=== PATIENT | female | born 1950 | race Caucasian/White ===

== ENCOUNTER 2023-04-16 14:03 | Observation (INO) | payer MEDICARE, OTHER, SELFPAY ==
[2023-04-16] VITALS (12 sets, daily range): BP systolic 112–159; BP diastolic 65–104; PULSE 87–127; RESP 14–18; TEMP 36.6–38.3; O2SAT 94–99; BMI 27.1; BMI 26.9
--- NOTE | 2023-04-16 14:39 | EKG12_ITS ---
Test Reason : Blood Pressure : / mmHG Vent. Rate : 113 BPM Atrial Rate : 000 BPM P-R Int : 000 ms QRS Dur : 084 ms QT Int : 322 ms P-R-T Axes : 000 018 080 degrees QTc Int : 441 ms Atrial fibrillation with rapid ventricular response Nonspecific T wave abnormality Abnormal ECG Confirmed by WENDY ALFARO, JENNY ([id number]), photo editor ROXI SALAZAR ([id number]) on 04/18/2023 6:49:55 AM Referred By: Confirmed By:JENNY NGUYEN MD
--- NOTE | 2023-04-16 14:49 | RAD_ITS ---
INDICATION: chest pain EXAMINATION/TECHNIQUE: X-RAY - XR Chest 1 View COMPARISON: No relevant prior comparison study available FINDINGS: LINES/DEVICES: None. LUNGS: No consolidation, edema or effusion. No pneumothorax. MEDIASTINUM AND CARDIOVASCULAR STRUCTURES: Borderline cardiac silhouette. BONES AND SOFT TISSUES: No demonstrated acute osseous changes. RAD/Chest 1 View (Portable) IMPRESSION: No radiographic evidence of acute cardiopulmonary disease. Electronically Signed: Vinicio Carrillo MD at 15:16 EDT ,
[2023-04-16] MEDS: Nitroglycerin SL (ED/IMG/CATH) 0.4 MG TABLET SL ×3 (14:50→15:39)
[2023-04-16] MEDS: Aspirin 81 MG TAB.CHEW 324 MG PO (14:50)
[2023-04-16 15:02] LABS: Absolute Lymphocyte Count 0.99 X10^3/uL (0.83-4.51); Absolute Neutrophil Count 8.3 X10^3/uL (2.0-7.7); Basophil# 0.03 X10^3/uL; Basophil% 0.3 % (0-1); Eosinophil# 0.02 X10^3/uL; Eosinophils% 0.2 % (0-5); Hematocrit 43.3 % (37-47); Hemoglobin 13.9 g/dL (12.0-15.0); Lymphocyte # 0.99 X10^3/ul (0.83-4.51); Lymphocyte % 9.4 % (19-41); Mean Corp Hgb Conc 32.1 g/dL (32-36); Mean Corpuscular Hgb 28.8 pg (27.0-32.0); Mean Corpuscular Volume 89.6 fL (81-99); Mean Platelet Vol. 9.4 fl (6.2-12.0); Monocyte# 1.14 X10^3/uL; Monocyte% 10.8 % (0-10); NRBC Flagged by Analyzer 0 % (0-5); Neutrophil % 78.7 % (47-70); Platelet Count 264 K/mm3 (150-450); RBC Distribution Width CV 13.8 % (11.6-14.6); RBC Distribution Width SD 45.6 fl (35.1-43.9); Red Blood Count 4.83 M/mm3 (4.2-5.4); White Blood Count 10.5 K/mm3 (4.4-11.0)
[2023-04-16 15:21] LABS: Anion Gap 4 (5-15); BUN 11 mg/dL (7-18); BUN/Creat Ratio 14.5 RATIO (10-20); Chloride 107 mmol/L (98-107); Creatinine, Serum 0.76 mg/dL (0.55-1.02); EST Glomerular Filtration Rate 79 mL/min (>60); Est Glom Filt Rate - Afr Amer 96 mL/min (>60); Glucose 136 mg/dL (74-106); Potassium 3.8 mmol/L (3.5-5.1); Sodium Level 138 mmol/L (136-145); Troponin-I HS 7 pg/mL (3.0-54.0)
--- NOTE | 2023-04-16 15:22 | ED.VIS.CHEST ---
HPI History of Present Illness Chief Complaint: Chest Pain Informant: patient Onset/Context/Timing Onset: Today Activity at onset: sudden Timing: Continuous Quality: Positive for Pressure Location: Substernal Worsened By: Exertion, Movement of Torso and Breathing Relieved By: Nothing Associated Symptoms: Positive for Cough and Lightheadedness; Negative for Nausea, Vomiting, Diaphoresis, Dyspnea, Fever, Acid Reflux or Palpitations Narrative Narrative: Patient presents with chest pain that began today. Patient states it is over the lower substernal area. Patient states her pain is constant. Patient describes it as a pressure. Patient states it is worse with bending forward, movement of her upper chest, deep breathing, and going up steps. Patient states nothing seems to help with it. Patient admits to a recent cough but denies any sputum production. Patient admits to some lightheadedness. Patient denies any nausea or vomiting. Patient denies any diaphoresis. Patient denies any shortness of breath. CVD Risk Factors: Negative for Hypertension, Diabetes, Hypercholesterolemia, Family History 1' </=55 or Smoking PE Risk Factors: Negative for Recent Travel/Surgery, Recent Immobilization, Prior DVT or PE, Cancer or OCP + Smoking + >/=35 PFSH PFSH Medical History (Updated 04/16/23 @ 16:[address] Gil Bowman DO) Anxiety Hypothyroid Home Medications alprazolam 0.25 mg tablet 0.25 mg PO DAILY PRN anxiety 04/16/23 [History Last Taken Unknown] thyroid (pork) 30 mg tablet ([place] Thyroid) 60 mg PO MOWEFR HYPOTHYROIDISM 04/16/23 [History Last Taken Unknown] thyroid (pork) 30 mg tablet ([place] Thyroid) 90 mg PO .COMPLEX HYPOTHROIDISM 04/16/23 [History Last Taken Unknown] Allergy/AdvReac Type Severity Reaction Status Date / Time erythromycin base AdvReac Mild PT UNSURE Verified 04/16/23 14:07 OF REACTION Surgical History (Updated 04/16/23 @ 15:[address] Gil Bowman DO) Hx of cataract surgery Hx of cholecystectomy Hx of eye surgery Hx of hysterectomy Hx of oophorectomy Hx of reduction mammoplasty Social History Smoking Status: Never smoker ROS ROS ED Constitutional Constitutional ED: Denies chills or fever(s) Eyes Eyes: Denies blurry vision or change in vision ENT ENT ED: Reports rhinorrhea; Denies sore throat Cardiovascular Cardiovascular: Reports chest pain; Denies palpitations Respiratory/Chest Respiratory/Chest: Reports cough; Denies dyspnea Gastrointestinal Gastrointestinal: Denies nausea or vomiting Genitourinary Genitourinary ED: Denies dysuria or hematuria Musculoskeletal Musculoskeletal: Denies back pain or neck pain Integumentary Denies abscess or rash Neurologic Neurologic: Denies headache(s) or weakness Allergic/Immunologic Allergic/Immunologic ED: Denies mouth swelling or urticaria EXAM Physical Exam Const Vital Signs: 04/16/23 14:04 04/16/23 14:24 04/16/23 14:42 Temperature 98 F Temperature Source Temporal Pulse Rate 127 H Respiratory Rate 16 Respiratory Effort Normal Non-Labored Blood Pressure 159/104 H Blood Pressure Mean 122 Pulse Ox 98 Oxygen Delivery Method Room Air Room Air 04/16/23 14:50 04/16/23 15:14 04/16/23 15:36 Temperature Temperature Source Pulse Rate 103 H 103 H 112 H Respiratory Rate 16 Respiratory Effort Blood Pressure 144/74 H 147/72 H 128/81 H Blood Pressure Mean 96 Pulse Ox 96 Oxygen Delivery Method Room Air 04/16/23 15:39 Temperature Temperature Source Pulse Rate 108 H Respiratory Rate Respiratory Effort Blood Pressure 138/82 H Blood Pressure Mean Pulse Ox Oxygen Delivery Method Positive well nourished and well developed General Appearance ED: well developed and NAD HEENT Reports moist mucous membranes Neck supple and no JVD Resp normal respiratory effort and clear to auscultation bilaterally Cardio Rate: tachycardic Rhythm: abnormal rhythm irregularly irregular GI soft to palpation, non-tender and non-distended Extremity General Extremety ED: Negative for edema or tenderness General Extremity: Negative for edema Neuro oriented x3, CN's II-XII intact bilaterally and no sensory deficits noted Sensorium / Orientation: awake and alert Motor Exam: strength 5/5 throughout Psych mental status grossly normal Heart Score History: Moderately Suspicious ECG: Nonspecific Repolarization Age: >/= 65 years Risk Factors: No Risk Factors Troponin: </= Normal Limit Score: 4 MDM MDM MDM Narrative Medical decision making narrative: Differential diagnosis includes cardiac dysrhythmia, cardiac ischemia, pneumonia, pneumothorax, pulmonary embolism, GERD, gastritis, and anxiety. EKG will be obtained to assess for cardiac dysrhythmia and cardiac ischemia. Chest x-ray will be obtained to assess for pneumonia and pneumothorax. CBC will be obtained to assess for leukocytosis and anemia. Basic metabolic profile will be obtained to assess for renal function, and electrolyte abnormalities. High-sensitivity troponin will be obtained to to assess for cardiac ischemia. D-dimer will be obtained to assess for pulmonary embolism. Lab Data Attestation: I reviewed the patient's lab results. Lab results narrative: CBC was reviewed and was within normal limits. Basic metabolic profile was reviewed and was within normal limits. High-sensitivity troponin was reviewed and was normal at 7. Labs: Laboratory Results - last 24 hr 04/16/23 04/16/23 14:15 15:40 WBC 10.5 RBC 4.83 Hgb 13.9 Hct 43.3 MCV 89.6 MCH 28.8 MCHC 32.1 RDW Std Deviation 45.6 H RDW Coeff of Lily 13.8 Plt Count 264 MPV 9.4 Immature Gran % (Auto) 0.600 Neut % (Auto) 78.7 H Lymph % (Auto) 9.4 L [place] % (Auto) 10.8 H Eos % (Auto) 0.2 Baso % (Auto) 0.3 Absolute Neuts (auto) 8.3 H Absolute Lymphs (auto) 0.99 Nucleated RBC % 0 D-Dimer Quant (PE/DVT) 0.68 H* Sodium 138 Potassium 3.8 Chloride 107 Carbon Dioxide 27.0 Anion Gap 4 L BUN 11 Creatinine 0.76 Estim Creat Clear Calc 48.00 Est GFR (MDRD) Af Amer 96 Est GFR (MDRD) Non-Af 79 BUN/Creatinine Ratio 14.5 Glucose 136 H Calcium 9.0 Troponin I High Sens 7 Radiography Diagnostic Testing: Clinical Impression(s) from Imaging Studies Chest X-Ray 04/16/23 14:49 IMPRESSION: No radiographic evidence of acute cardiopulmonary disease. Electronically Signed: Vinicio Carrillo MD at 15:16 EDT , Portable 1 view chest x-ray was obtained. On my independent interpretation, lung gonzalez are clear. There is normal cardiac silhouette. Bony thorax is normal. There is no acute process noted. Radiologist also interpreted the x-ray and agrees. EKG Initial EKG: Interpretation: Atrial Fibrillation (113) and Non-Specific ST Changes Comments: EKG was obtained. On my independent interpretation, shows atrial fibrillation with a rate of 113. QRS interval was normal at 84 ms. QTc interval was normal at 4 and 41 ms. Riley was normal at 18. There are nonspecific ST-T wave changes. Prior EKG tracings: not available for review Prior: No Prior Management Discussion w/another healthcare provider: Hospitalist Treatment and Re-Evaluation :: Patient was given aspirin here. Patient denies any history of atrial fibrillation in the past. Patient has a HEART score of 4. This puts her at moderate risk. Given this, I recommended admission to the hospital. Case was discussed with the hospitalist. He will admit the patient to PCU for observation. Patient and family understand and are agreeable with the plan. All questions were answered. Discharge Plan Dx/Rx/DC Orders Clinical Impression: New onset atrial fibrillation, Chest pain Disposition Disposition: Acute Care Hospital [facility]
[2023-04-16 16:12] LABS: D-Dimer Quantitative (DVT/PE) 0.68 FEU/ug/m (0.27-0.49)
--- NOTE | 2023-04-16 16:44 | ECHOD_ITS ---
Reason For Study: ATRIAL FIBRILLATION/ATRIAL FLUTTER Procedure This was a 2D Doppler, Color Flow transthoracic echocardiogram. Exam performed portable in patient room. Left Ventricle Normal LV size. Left ventricular systolic function is normal. The estimated ejection fraction is 55 %. No regional wall motion abnormalities noted. Right Ventricle Normal RV size. Normal systolic function. Atria Normal left atrium. Normal right atrium. Mitral Valve Normal mitral valve. Tricuspid Valve Normal tricuspid valve. Mild tricuspid valve insufficiency. Pulmonary artery systolic pressure is 27 mmHg. Great Vessels Normal aortic root. The pulmonary artery is normal size. Normal inferior vena cava. Pericardium/Pleural No pericardial effusion. MMode/2D Measurements & Calculations LVIDd: 4.9 cm IVSd: 0.85 cm Ao root diam: 3.0 cm LVIDs: 3.1 cm LVPWd: 1.0 cm LA dimension: 4.1 cm FS: 36.4 % LAV(MOD-bp): 58.6 ml LVAd ap4: 21.1 cm2 LVAd ap2: 17.5 cm2 LAV(MOD-bp) Indexed: 30.8 ml/m2 LVLd ap4: 6.6 cm LVLd ap2: 6.1 cm LAV(MOD-sp2): 58.6 ml EDV(MOD-sp4): 55.1 ml EDV(MOD-sp2): 41.0 ml LAV(MOD-sp4): 58.6 ml EDV(sp4-el): 57.1 ml EDV(sp2-el): 42.7 ml LVAs ap4: 13.6 cm2 LVAs ap2: 11.4 cm2 LVLs ap4: 5.9 cm LVLs ap2: 5.5 cm ESV(MOD-sp4): 26.8 ml ESV(MOD-sp2): 19.6 ml ESV(sp4-el): 26.8 ml ESV(sp2-el): 20.0 ml EF(MOD-sp4): 51.4 % EF(MOD-sp2): 52.1 % EF(sp4-el): 53.1 % SV(MOD-sp4): 28.3 ml SV(MOD-sp2): 21.4 ml SV(sp4-el): 30.3 ml LA A4 area: 20.6 cm2 RA A4 area: 15.8 cm2 TAPSE: 2.5 cm Doppler Measurements & Calculations MV E max selvin: 114.8 cm/sec Lat Peak E' Selvin: 7.2 cm/sec Med Peak E' Selvin: 10.0 cm/sec E/E' lat: 16.0 E/E' med: 11.5 Ao V2 max: 105.1 cm/sec LV V1 max: 92.8 cm/sec PA V2 max: 84.1 cm/sec Ao max P.4 mmHg LV V1 max P.5 mmHg PA V2 mean: 66.6 cm/sec Ao V2 mean: 75.4 cm/sec LV V1 mean P.9 mmHg Ao mean P.5 mmHg LV V1 mean: 64.1 cm/sec Ao V2 VTI: 20.0 cm LV V1 VTI: 18.1 cm AV (velocity ratio): 0.90 TR max selvin: 238.6 cm/sec TR max P.8 mmHg ECHO/Echo Complete Interpretation Summary Normal LV size. Left ventricular systolic function is normal. The estimated ejection fraction is 55 %. Normal left atrium. Normal right atrium. Ordering Physician: Sanjay Barbour Referring Physician: michelle Horn Performed By: Isadora Hernandez RDCS, RVT
[2023-04-16 16:50] LABS: Thyroid Stim Hormone (TSH) 0.55 uIU/mL (0.358-3.74)
--- NOTE | 2023-04-16 18:16 | HP.PCM.HOS_ITS ---
HPI - General General Date of Admission: 04/16/23 Date of Service: 04/16/23 Chief Complaint: Chest pain HPI Narrative SUJIT ARNDT, is a 72 F who presents to the emergency room at [facility] with complaints of substernal chest pain which started abruptly this morning when she was at rest. Patient states the chest pain is pressure-like in nature but if she takes in a deep breath she gets a sharp pain. Patient did not complain of any radiation of the pain into her shoulder until she was in the ER today. Patient does not have a history of coronary artery disease. She does not complain of any shortness of breath. Past medical history includes hypothyroidism. Work-up in the emergency room included an EKG which showed the patient to be in atrial fibrillation with a pulse of 113, there was no ST-T wave elevation or changes noted, this x-ray was unremarkable, patient's CBC was unremarkable, patient's chemistry profile was unremarkable, her TSH was normal at 0.55. Troponin was unremarkable. Patient appeared asymptomatic with the atrial fibrillation, allergy the patient's chest pain is unknown at this time but possibly could be secondary to her atrial fib. Patient will be placed into inpatient status on PCU, she will be monitored on telemetry, cardiac enzymes will be cycled, if the enzymes remain normal, she will undergo a treadmill nuclear stress test tomorrow morning. Patient was not placed on any anticoagulants at this time pending the outcome of her stress test, I did discuss with her the probability that she would need to go home on a medicine such as Xarelto or Eliquis. Patient was given no medication at the present time for rate control as her heart rate has not been very high. [facility] Medical History Anxiety Hypothyroid Home Medications alprazolam 0.25 mg tablet 0.25 mg PO DAILY PRN anxiety 04/16/23 [History Last Taken Unknown] benzonatate 100 mg capsule 100 mg PO Q6H 04/16/23 [History Last Taken 04/16/23] lansoprazole 15 mg capsule,delayed release (Prevacid 24Hr) 15 mg PO DAILY PRN REFLUX 04/16/23 [History Last Taken 04/16/23] thyroid (pork) 30 mg tablet ([place] Thyroid) 60 mg PO MOWEFR HYPOTHYROIDISM 04/16/23 [History Last Taken 04/13/23] thyroid (pork) 30 mg tablet ([place] Thyroid) 90 mg PO .COMPLEX HYPOTHROIDISM 04/16/23 [History Last Taken 04/15/23] Allergy/AdvReac Type Severity Reaction Status Date / Time erythromycin base AdvReac Mild PT UNSURE Verified 04/16/23 14:07 OF REACTION Surgical History Hx of cataract surgery Hx of cholecystectomy Hx of eye surgery Hx of hysterectomy Hx of oophorectomy Hx of reduction mammoplasty Social History (Updated 04/16/23 @ 18:02 by Radha Santoyo) household members: spouse Smoking Status: Never smoker ROS Constitutional Constitutional: Denies anorexia, change in weight, chills, fatigue, fever(s), night sweats or weakness Eyes Eyes: Denies blurry vision, change in eye color, change in vision, discharge from eye(s) or eye pain Cardiovascular Cardiovascular: Reports chest pain; Denies claudication, dyspnea on exertion, edema, lightheadedness, orthopnea or palpitations Respiratory/Chest Respiratory/Chest: Denies cough, dyspnea, excessive phlegm production, hemoptysis, productive cough, shortness of breath at rest or shortness of breath with exertion Gastrointestinal Gastrointestinal: Denies abdominal pain, constipation, diarrhea, hematemesis, hematochezia, melena, nausea or vomiting Genitourinary Genitourinary: Denies dysuria, hematuria, urinary frequency, urinary hesitancy, urinary incontinence or urinary urgency Musculoskeletal Musculoskeletal: Denies back pain, joint pain, joint stiffness, joint swelling, myalgias or neck pain Neurologic Neurologic: Denies abnormal gait, abnormal speech, dizziness, focal weakness, headache(s), loss of vision, numbness, other visual disturbances, paresthesias, syncope or tingling Psychiatric Psychiatric: Denies anxiety, cognitive impairment, depression, irritability, mood swings or suicidal ideation Endocrine Endocrinology: Reports other Details: History of hypothyroidism ; Denies change in body appearance, cold intolerance, excessive sweating, heat intolerance, polydipsia or polyuria Hematologic/Lymphatic Hematologic/Lymphatic: Denies none, anemia, easy bleeding, easy bruising or lymphadenopathy Allergic/Immunologic Allergic/Immunologic: Denies rhinitis, urticaria, eczemia or asthma Vital Signs Vital Signs Vital Signs: 04/16/23 14:04 04/16/23 14:24 04/16/23 14:42 Temperature 98 F Temperature Source Temporal Pulse Rate 127 H Respiratory Rate 16 Respiratory Effort Normal Non-Labored Blood Pressure 159/104 H Blood Pressure Mean 122 Blood Pressure Source Blood Pressure Position Blood Pressure Location Pulse Ox 98 Oxygen Delivery Method Room Air Room Air 04/16/23 14:50 04/16/23 15:14 04/16/23 15:36 Temperature Temperature Source Pulse Rate 103 H 103 H 112 H Respiratory Rate 16 Respiratory Effort Blood Pressure 144/74 H 147/72 H 128/81 H Blood Pressure Mean 96 Blood Pressure Source Blood Pressure Position Blood Pressure Location Pulse Ox 96 Oxygen Delivery Method Room Air 04/16/23 15:39 04/16/23 16:00 04/16/23 17:00 Temperature Temperature Source Pulse Rate 108 H 110 H 109 H Respiratory Rate 14 16 Respiratory Effort Blood Pressure 138/82 H 135/73 H 112/65 Blood Pressure Mean 93 80 Blood Pressure Source Blood Pressure Position Blood Pressure Location Pulse Ox 94 99 Oxygen Delivery Method Room Air Room Air 04/16/23 17:50 Temperature 101.0 F H Temperature Source Oral Pulse Rate 108 H Respiratory Rate 16 Respiratory Effort Blood Pressure 155/85 H Blood Pressure Mean 108 Blood Pressure Source Monitor Blood Pressure Position Semi-Fowlers Blood Pressure Location Right Arm Pulse Ox 95 Oxygen Delivery Method Room Air Weight Weight: 77.791 kg Body Mass Index (BMI) 26.9 Physical Exam Const alert, oriented x3, no apparent distress, average body habitus and healthy appearing General Appearance: cooperative, well kempt and well developed Orientation / Consciousness: awake, oriented to person, oriented to place and oriented to time HEENT normocephalic, head/scalp atraumatic, hearing grossly normal bilaterally and moist oral mucous membranes Eyes PERRL, EOMs intact bilaterally and conjunctivae normal Neck supple, no JVD, thyroid normal and no carotid bruits General: trachea midline Resp normal respiratory effort, no retractions, no use of accessory muscles and clear to auscultation bilaterally Auscultation: Negative for rales, rhonchi or wheezes Cardio S1 normal heart sound, S2 normal heart sound, no murmurs, no rub and no gallops Cardio Narrative: Heart rate and rhythm is irregular GI normal to inspection, nondistended, normoactive bowel sounds, soft to palpation, non-tender and non-distended Extremity normal to inspection and no clubbing, cyanosis or edema Skin no rashes or lesions noted General Skin Exam: no breakdown Neuro oriented x3, CN's II-XII intact bilaterally, no focal motor deficits and no sensory deficits noted Sensorium / Orientation: awake, alert, oriented to person, oriented to place and oriented to time Speech: speech normal Psych affect normal Results Lab / Micro Data 04/16/23 14:15 04/16/23 14:15 Labs: Laboratory Results - last 24 hr 04/16/23 14:15: WBC 10.5, RBC 4.83, Hgb 13.9, Hct 43.3, MCV 89.6, MCH 28.8, MCHC 32.1, RDW Std Deviation 45.6 H, RDW Coeff of Lily 13.8, Plt Count 264, MPV 9.4, Immature Gran % (Auto) 0.600, Neut % (Auto) 78.7 H, Lymph % (Auto) 9.4 L, [place] % (Auto) 10.8 H, Eos % (Auto) 0.2, Baso % (Auto) 0.3, Absolute Neuts (auto) 8.3 H, Absolute Lymphs (auto) 0.99, Nucleated RBC % 0, Sodium 138, Potassium 3.8, Chloride 107, Carbon Dioxide 27.0, Anion Gap 4 L, BUN 11, Creatinine 0.76, Estim Creat Clear Calc 48.00, Est GFR (MDRD) Af Amer 96, Est GFR (MDRD) Non-Af 79, BUN/Creatinine Ratio 14.5, Glucose 136 H, Calcium 9.0, Troponin I High Sens 7, TSH 0.55 04/16/23 15:40: D-Dimer Quant (PE/DVT) 0.68 H* Radiology Impression Chest X-Ray 04/16/23 14:49 IMPRESSION: No radiographic evidence of acute cardiopulmonary disease. Electronically Signed: Vinicio Carrillo MD at 15:16 EDT , Assessment & Plan Assessment/Plan (1) Chest pain: PLAN: Plan 1. Chest pain-etiology unclear at this point, patient was placed in observation status on PCU, cardiac enzymes will be cycled, if the cardiac enzymes remain normal she will undergo an exercise nuclear stress test tomorrow #2 atrial fibrillation-it is unknown whether this is new onset but the patient has had no history of atrial fibrillation before, she denies any chronic heart palpitation, again she was not placed on any rate limiting medications at this time due to the heart rate being fairly well controlled. Patient will need a prescription for anticoagulants when she is discharged from the hospital. Mike grace understands this. #3 hypothyroidism-patient's TSH is unremarkable, she states that she follows up with an piston maker on a routine basis and her thyroid functions have been within normal limits. Total clinical time spent by myself addressing the patient's medical issues, reviewing all of her data, and collaborating with patient's care team: 55 minutes Charges/Coding Visit Charges Inpatient E&M: 95566 Init Hosp L2
[2023-04-16 18:50] LABS: Troponin-I HS 8 pg/mL (3.0-54.0)
[2023-04-16] MEDS: Acetaminophen 325 MG Tablet 650 MG PO (19:08)
[2023-04-16 20:37] LABS: Troponin-I HS 9 pg/mL (3.0-54.0)
[2023-04-16] MEDS: Heparin Injection (Vial) 5,000 UNIT/ML VIAL 5000 UNIT SC (21:20)
[2023-04-16] MEDS: Metoprolol Tartrate 25 MG Tablet 50 MG PO (21:21)
--- NOTE | 2023-04-16 23:37 | EKG12_ITS ---
Test Reason : CP Blood Pressure : / mmHG Vent. Rate : 091 BPM Atrial Rate : 000 BPM P-R Int : 000 ms QRS Dur : 088 ms QT Int : 394 ms P-R-T Axes : 000 036 069 degrees QTc Int : 484 ms Atrial fibrillation Abnormal ECG When compared with ECG of 16-APR-2023 14:06, MANUAL COMPARISON REQUIRED, DATA IS UNCONFIRMED Confirmed by WENDY ALFARO, JENNY ([id number]), offline editor ROXI SALAZAR ([id number]) on 04/18/2023 6:30:10 AM Referred By: JULIEN Confirmed By:JENNY NGUYEN MD
[2023-04-17] MEDS: 0.9% Saline Lock 10 ML Syringe IV ×2 (00:08→07:59)
[2023-04-17] MEDS: Morphine 2 MG/ML Syringe IV (00:09)
[2023-04-17] MEDS: MELATONIN 10 MG TABLET 5 MG PO (00:13)
[2023-04-17 05:33] VITALS: BP 117/67; PULSE 85; RESP 15; TEMP 37.2; O2SAT 95
[2023-04-17] MEDS: Thyroid 60 MG Tablet 90 MG PO (05:39)
--- NOTE | 2023-04-17 05:55 | EKG12_ITS ---
Test Reason : AM EKG Blood Pressure : / mmHG Vent. Rate : 084 BPM Atrial Rate : 000 BPM P-R Int : 000 ms QRS Dur : 098 ms QT Int : 398 ms P-R-T Axes : 000 037 067 degrees QTc Int : 470 ms Atrial fibrillation Abnormal ECG When compared with ECG of 16-APR-2023 23:46, MANUAL COMPARISON REQUIRED, DATA IS UNCONFIRMED Confirmed by WENDY ALFARO, JENNY ([id number]), medical transcription editor ROXI SALAZAR ([id number]) on 04/18/2023 6:30:22 AM Referred By: JULIEN Confirmed By:JENNY NGUYEN MD
[2023-04-17 07:48] VITALS: BP 106/56; PULSE 88; RESP 16; TEMP 36.6; O2SAT 98
[2023-04-17 12:02] VITALS: BP 121/80; PULSE 95; RESP 16; TEMP 36.7; O2SAT 95
[2023-04-17 12:06] VITALS: BP 121/80; PULSE 95
[2023-04-17] MEDS: Metoprolol Tartrate 50 MG Tablet PO (12:06)
[2023-04-17] MEDS: Heparin Injection (Vial) 5,000 UNIT/ML VIAL 5000 UNIT SC (12:06)
--- NOTE | 2023-04-17 12:20 | STRESSREP ---
Stress Test Report Exercise myocardial perfusion stress test. 72-year-old lady with a history of atrial fibrillation. Stress protocol: Resting EKG demonstrates atrial fibrillation with a rate of 90 bpm resting blood pressure is 110/76 mmHg. The patient exercised according to the regular Naun protocol for a total duration of 3 minutes attaining a maximum heart rate of 136 bpm which was 93% of maximum predicted heart rate; the maximum workload was 4.6 metabolic equivalents. At rest there were no ST or T wave changes noted to suggest ischemia and at peak exercise upsloping ST changes only were noted which did not meet the criteria for ischemia. No clinical angina was noted the test was terminated due to the target heart rate being achieved/fatigue. The peak blood pressure was 130/64 mmHg. Rate-pressure product was 15,000. Myocardial perfusion protocol. 11 mCi of technetium 99m sestamibi was injected at rest. The patient exercised according to regular Naun protocol for total duration of 3 minutes and at peak exercise 34 mCi of technetium 99m sestamibi was injected stress images were obtained stress and rest images were reconstructed in comparing the short axis vertical long and horizontal long axis. Gated images were also obtained. Perfusion SPECT analysis: Review of the stress images demonstrate normal uptake of tracer noted in all areas of the myocardium. The resting images similarly demonstrate normal uptake of tracer noted in all areas of the myocardium. No areas of reversibility are noted to suggest ischemia no previous infarct was noted. Gated SPECT analysis: The gated ejection fraction is 75%. Conclusion: Normal exercise myocardial perfusion stress test at a low workload Preserved ejection fraction.
--- NOTE | 2023-04-17 13:18 | DCINST_ITS ---
Discharge Instructions Diet Discharge Diet: Low fat / Low cholesterol Activity Discharge Activity: Return to Normal Activity Weight Bearing Status: Weight bearing as tolerated Dressing / Incision Call your doctor if you observe: Fever of 101 or Higher, Shortness of breath, Dizziness, Swelling in the ankles, Chest pain and Increased palpitations (irregular heartbeat) Follow Up Care Test Results: Test results from this visit will be discussed in further detail at your follow- up appointment, if applicable. Discharge Plan Admission Admit Date/Time: 04/16/23 16:41 Primary Reason for Your Visit: chest pain Attending Provider: Leonora Rose Primary Care Provider: Cliff Horn Consulting Providers: Sanjay Barbour Instructions Patient Instructions: AFib Dc, Chest Pain UKO Ch Discharge Orders/Prescriptions Prescriptions: New metoprolol tartrate 50 mg Tablet 50 mg PO BID Qty: 60 2RF Eliquis 5 mg tablet 5 mg PO BID Qty: 60 2RF Continued alprazolam 0.25 mg tablet 0.25 mg PO DAILY PRN (Reason: anxiety) thyroid (pork) [Brilliant Thyroid] 30 mg tablet 60 mg PO Patient Comments: Sunday 2 (30MG TABLETS) thyroid (pork) [Brilliant Thyroid] 30 mg tablet 90 mg PO .COMPLEX Patient Comments: , , SUN, SUN 3 (3O MG TABLETS) Rx Instructions: 90 mg orally SUNDAY, SUNDAY, SUNDAY, SUNDAY; lansoprazole [Prevacid 24Hr] 15 mg capsule,delayed release(DR/EC) 15 mg PO DAILY PRN (Reason: REFLUX) benzonatate 100 mg capsule 100 mg PO Q6H Patient Comments: PT UNSURE OF STRENGTH Referrals / Follow Up: Dawood Marsh MD [Med Staff - Active Staff] - Within 1 Month (See to establish care for new onset A-fib.) Cliff Horn DO [Primary Care Provider] - Within 2 Weeks Disposition Disposition (needs filled in before D/C Order can be placed): Home, Self Care
--- NOTE | 2023-04-17 13:18 | PCM.DC.SUM ---
Providers Date of Admission: 04/16/23 Date of Discharge: 04/17/23 Primary Care Physician: Dr. Michelle Horn DO Reason For Visit: CHEST PAIN, AFIB Diagnosis Discharge Diagnosis (1) Chest pain: Status: Acute Code(s): R07.9 - Chest pain, unspecified Medications at Discharge Home Medications alprazolam 0.25 mg tablet 0.25 mg PO DAILY PRN anxiety 04/16/23 benzonatate 100 mg capsule 100 mg PO Q6H cough 04/16/23 lansoprazole 15 mg capsule,delayed release (Prevacid 24Hr) 15 mg PO DAILY PRN REFLUX 04/16/23 thyroid (pork) 30 mg tablet (Onia Thyroid) 60 mg PO MOWEFR HYPOTHYROIDISM 04/16/23 thyroid (pork) 30 mg tablet (Onia Thyroid) 90 mg PO .COMPLEX HYPOTHROIDISM 04/16/23 apixaban 5 mg tablet (Eliquis) 5 mg PO BID #60 tabs 04/17/23 metoprolol tartrate 50 mg tablet 50 mg PO BID #60 tabs 04/17/23 Hospital Course Operations None Procedures 2-D Echocardiogram and Stress test Summary of Care Provided Minutes Spent on Discharge: 55 Hospital Course: Patient is a 72-year-old female with a past medical history as outlined was admitted through the ED on 04/16/2023 with a complaint of substernal chest pain which started while she was at rest on the day of admission. Pain was pressure-like and worsened with taking a deep breath. Pain did not radiate anywhere. She had a history of hypothyroidism but did not have any history of coronary heart disease. Review of systems otherwise negative. On admission EKG showed new onset A-fib with heart rate of 113. Chest x-ray showed no acute cardiopulmonary process and TSH was within normal limits at 0.55. Labs were otherwise unremarkable. She was admitted and managed for chest pain to rule out ACS and was thought that the chest pain and pressure was likely due to the new onset A-fib. She had a stress test which showed no evidence of ischemia. 2D echo showed EF of 55% with normal left ventricular wall/systolic function. Left and right atria were also normal. She was placed on metoprolol 50 mg twice daily. She was also placed on Eliquis 5 mg twice daily for stroke prophylaxis. She remained stable and was discharged home on 04/17/2023. She is to follow-up with her primary care doctor within 1 to 2 weeks and was also referred to cardiology to establish care for A-fib. Patient seen and examined prior to discharge. She felt well and had no complaints. She had an uneventful night. She had converted to normal sinus rhythm. Review of symptoms otherwise negative. Labs and vitals reviewed. Home medication reviewed and reconciled. Physical Exam Const alert, oriented x3, no apparent distress and average body habitus General Appearance: cooperative, comfortable and well kempt Orientation / Consciousness: awake Exam Limitations: no limitations HEENT normocephalic, head/scalp atraumatic, hearing grossly normal bilaterally and moist oral mucous membranes Mouth: oral and palatal mucosa normal Eyes PERRL, EOMs intact bilaterally and conjunctivae normal Neck no lymphadenopathy and supple Resp normal respiratory effort, no retractions, no use of accessory muscles and clear to auscultation bilaterally Cardio regular rate, regular rhythm, S1 normal heart sound, S2 normal heart sound and no murmurs GI normal to inspection, nondistended, normoactive bowel sounds, soft to palpation and non-tender Extremity normal to inspection, full ROM and no clubbing, cyanosis or edema Skin no rashes or lesions noted, no wounds and skin turgor normal Neuro oriented x3, CN's II-XII intact bilaterally, moves all extremities, no focal motor deficits and no sensory deficits noted Sensorium / Orientation: awake, alert and oriented to person Coordination / Balance: [id number]-[id number] test normal and gexq-[id number] test normal Weight / BMI Weight Weight: 171 lb 8 oz Body Mass Index (BMI) 26.9 ABG / Lab / Microbiology Data 04/16/23 14:15 04/16/23 14:15 Laboratory: Laboratory Results - last 24 hr 04/16/23 14:15: WBC 10.5, RBC 4.83, Hgb 13.9, Hct 43.3, MCV 89.6, MCH 28.8, MCHC 32.1, RDW Std Deviation 45.6 H, RDW Coeff of Lily 13.8, Plt Count 264, MPV 9.4, Immature Gran % (Auto) 0.600, Neut % (Auto) 78.7 H, Lymph % (Auto) 9.4 L, [place] % (Auto) 10.8 H, Eos % (Auto) 0.2, Baso % (Auto) 0.3, Absolute Neuts (auto) 8.3 H, Absolute Lymphs (auto) 0.99, Nucleated RBC % 0, Sodium 138, Potassium 3.8, Chloride 107, Carbon Dioxide 27.0, Anion Gap 4 L, BUN 11, Creatinine 0.76, Estim Creat Clear Calc 48.00, Est GFR (MDRD) Af Amer 96, Est GFR (MDRD) Non-Af 79, BUN/Creatinine Ratio 14.5, Glucose 136 H, Calcium 9.0, Troponin I High Sens 7, TSH 0.55 04/16/23 15:40: D-Dimer Quant (PE/DVT) 0.68 H* 04/16/23 18:27: Troponin I High Sens 8 04/16/23 20:09: Troponin I High Sens 9 Radiography Diagnostic Testing: Radiology Impression Chest X-Ray 04/16/23 14:49 IMPRESSION: No radiographic evidence of acute cardiopulmonary disease. Electronically Signed: Vinicio Carrillo MD at 15:16 EDT , Echocardiogram 04/16/23 16:44 Interpretation Summary Normal LV size. Left ventricular systolic function is normal. The estimated ejection fraction is 55 %. Normal left atrium. Normal right atrium. Ordering Physician: Sanjay Barbour Referring Physician: michelle Horn Performed By: Isadora Hernandez, SHANIQUE, RVT D/C Instructions Discharge Diet: Low fat / Low cholesterol Discharge Activity: Return to Normal Activity Weight Bearing Status: Weight bearing as tolerated Call your doctor if you observe: Fever of 101 or Higher, Shortness of breath, Dizziness, Swelling in the ankles, Chest pain and Increased palpitations (irregular heartbeat) Meaningful Use Info Meaningful Use Diagnoses (Choose all that apply): None applicable Discharge Plan Admission Admit Date/Time: 04/16/23 16:41 Primary Reason for Your Visit: chest pain Attending Provider: Leonora Rose Primary Care Provider: Michelle Horn Consulting Providers: Sanjay Barbour Instructions Patient Instructions: AFib Dc, Chest Pain UKO Ch Discharge Orders/Prescriptions Prescriptions: New metoprolol tartrate 50 mg Tablet 50 mg PO BID Qty: 60 2RF Eliquis 5 mg tablet 5 mg PO BID Qty: 60 2RF Continued alprazolam 0.25 mg tablet 0.25 mg PO DAILY PRN (Reason: anxiety) thyroid (pork) [Onia Thyroid] 30 mg tablet 60 mg PO Patient Comments: Sunday 2 (30MG TABLETS) thyroid (pork) [Onia Thyroid] 30 mg tablet 90 mg PO .COMPLEX Patient Comments: , , SUN, SUN 3 (3O MG TABLETS) Rx Instructions: 90 mg orally SUNDAY, SUNDAY, SUNDAY, SUNDAY; lansoprazole [Prevacid 24Hr] 15 mg capsule,delayed release(DR/EC) 15 mg PO DAILY PRN (Reason: REFLUX) benzonatate 100 mg capsule 100 mg PO Q6H Patient Comments: PT UNSURE OF STRENGTH Referrals / Follow Up: Dawood Marsh MD [Med Staff - Active Staff] - Within 1 Month (See to establish care for new onset A-fib.) Michelle Horn DO [Primary Care Provider] - Within 2 Weeks Disposition Disposition (needs filled in before D/C Order can be placed): Home, Self Care Charges/Coding Visit Charges Inpatient E&M: 97747 Disch Hosp >30min
--- NOTE | 2023-04-17 14:35 | CASEMGMT ---
Patient has order for discharge. Patient will be discharging on Eliquis. RADHA NAQVI called [facility] to verify palomo. Co-pay is $549. RADHA NAQVI updated patient, states she has not met her deductible. Eliquis savings card provided to patient. RADHA NAQVI instructed patient to follow-up with doctor is medication is too expensive. Patient denied further needs. Patient had no further questions or concerns/
== END 2023-04-17 13:17 | disposition home or self-care (01) ==
LOC: ED 16:19 → PCU 17:09
PROVIDERS: Admitting Provider Internal Medicine; Emergency Provider Emergency Medicine; PCP Preventive Medicine Occupational Medicine; Visit Provider Student in an Organized Health Care Education/Training Program
DX: I48.91 Unspecified atrial fibrillation (principal); R42 Dizziness and giddiness; E03.9 Hypothyroidism, unspecified; F41.9 Anxiety disorder, unspecified; Z79.890 Hormone replacement therapy; R07.89 Other chest pain
CPT/HCPCS: 36415; 71045; 78452; 80048; 84443; 84484; 85025; 85379; 93005; 93017; 93306; 96372; 96374; 99221; 99285; A9500; J7030; A4216; G0378

== ENCOUNTER 2023-07-04 11:53 | Day surgery (SDC) | payer MEDICARE, OTHER, SELFPAY ==
[2023-07-03 10:47] VITALS: BMI 27.1
--- OUTSIDE RECORDS SUMMARY | 2023-07-04 12:21 | XMS RPT_ITS | CCD ---
Author Name Unknown Address [id number] [place] [address] Organization [facility] Care Team Providers Care Slide Forming Machine Tender Name Role Phone JUDI HUBER Unavailable Unavailable JOHN SALMON Unavailable Unavailable JOHN SALMON Unavailable Unavailable Unavailable Primary Care Provider Edyta NGUYEN MD, MR JENNY Ford Attending Unavailable JOHN SALMON DO Primary Care Unavailable JOHN SALOMN DO Attending Unavailable JOHN SALMON DO Primary Care Unavailable YAZAN NIELSEN MD Attending Unavailable JOHN SALMON DO Primary Care Unavailable LAURYN DPM, DR ANASTACIA Chisholm Attending Unava ilable JOHN SALMON DO Primary Care Unavailable JOHN SALMON DO Primary Care Physician ([phone] Allergies Allergy Classification Reported Allergen(s) Allergy Type Date of Onset Reaction(s) Facility (2 sources) erythromycin; Translations: [ERYTHROMYCIN] Drug Allergy 7 AOF, Disoriented [facility] Repository Medications Current Medications Medication Drug Class(es) Dates Sig (Normalized) Sig (Original) apixaban 5 mg oral tablet (1 source) Factor Xa Inhibitor Start: 05-08-2023 Eliquis 5 mg oral tablet Dose : 5 mg = 1 tab(s), Oral, BID, # 60 tab(s), 2 Refill(s), Pharmacy: [facility], 166, cm, 05/01/23 11:14:00 EST, Height, 78.4, kg, 05/01/23 11:14:00 EST, Dosing Weight Start Date: 05/08/23 Status: Ordered flax seed oil 1000 mg oral capsule (1 source) Start: 06-21-2017 take 2 tablets by mouth once daily in the morning flax seed oil 1000 mg oral capsule 2,000 mg = 2 tab(s), Oral, qAM, 0 Refill(s) Start Date: 06/21/17 Status: Ordered meloxicam 15 mg oral tablet (1 source) Nonsteroidal Anti-inflammatory Drug Start: 04-17-2022 meloxicam 15 mg oral tablet Dose : 15 mg = 1 tab(s), Oral, qDay, PRN Pain, # 90 tab(s), 3 Refill(s), Pharmacy: [id number], Back pain Arthritis, 168, cm, 04/17/22 11:38:00 EDT, Height, kg, 04/17/22 11:38:00 EDT, Dosing Weight Start Date: 04/17/22 Status: Ordered metoprolol tartrate 50 mg oral tablet (1 source) beta-Adrenergic [place] Start: 05-01-2023 Metoprolol Tartrate 50 mg oral tablet Dose : 50 mg = 1 tab(s), Oral, BID, # 180 tab(s), 0 Refill(s) Start Date: 05/01/23 Status: Ordered Spacer, inhaler (1 source) Start: 07-07-2021 Spacer, inhaler See Instructions, Please dispense with inhaler, # 1 EA, 0 Refill(s), Pharmacy: [id number], Acute bacterial bronchitis, 170.2, cm, 07/07/21 8:03:00 EST, Height, 76.5, kg, 07/07/21 8:03:00 EST, Dosing Weight Start Date: 07/07/21 Status: Ordered thyroid (retirement) 30 mg oral tablet (1 source) Start: 06-21-2017 COMPUTER ENGINEER Thyroid 30 mg oral tablet Dose : 90 mg = 3 tab(s), Oral, Sun/Tues/Thurs/Sa t, 0 Refill(s) Start Date: 06/21/17 Status: Ordered Vitamin C 500 mg oral tablet (1 source) Start: 04-14-2019 Vitamin C 500 mg oral tablet Dose : 500 mg = 1 tab(s), Oral, qDay, # 30 tab(s), 0 Refill(s) Start Date: 04/14/19 Status: Ordered Vitamin D3 (1 source) Start: 04-14-2019 Vitamin D3 Dose : 400 unit(s) = 1 tab(s), Oral, Daily, 0 Refill(s) Start Date: 04/14/19 Status: Ordered Completed/Discontinued Medications Medication Drug Class(es) Dates Sig (Normalized) Sig (Original) ALPRAZolam 0.25 mg oral tablet (1 source) Benzodiazepine Start: 05-01-2023 End: 06-30-2023 ALPRAZolam 0.25 mg oral tablet Dose : 0.25 mg = 1 tab(s), Oral, qDay, PRN for anxiety, # 30 tab(s), 1 Refill(s), Pharmacy: [facility]/pharmacy #[id number], Anxiety, 166, cm, 05/01/23 11:14:00 EST, Height, 78.4, kg, 05/01/23 11:14:00 EST, Dosing Weight Start Date: 05/01/23 Stop Date: 06/30/23 Status: Ordered baclofen 10 mg oral tablet (1 source) gamma-Aminobutyric Acid-ergic Agonist Start: 01-23-2023 End: 02-06-2023 baclofen 10 mg oral tablet Dose : 10 mg = 1 tab(s), Oral, TID, PRN Spasm, # 40 tab(s), 0 Refill(s), Pharmacy: [facility]/pharmacy #[id number], Pain in left buttock, 166, cm, 01/23/23 11:18:00 EDT, Height, kg, 01/23/23 11:18:00 EDT, Dosing Weight Start Date: 01/23/23 Stop Date: 02/06/23 Status: Ordered Problems Active Problems Problem Classification Problem Date Documented Da te Episodic/Chronic Allergic reactions (1 source) Eczema 10-31-2022 Episodic Anxiety disorders (1 source) Anxiety state 08-01-2019 Chronic Cardiac dysrhythmias (1 source) Persistent atrial fibrillation 05-01-2023 Chronic Cardiac dysrhythmias (1 source) Palpitations 07-31-2022 Episodic Hemorrhoids (1 source) Hemorrhoids 12-10-2019 Episodic Mood disorders (1 source) Depressive disorder 12-10-2020 Chronic Nonmalignant breast conditions (1 source) Hypertrophy of breast 06-21-2017 Episodic Nonspecific chest pain (1 source) Chest pain; Translations: [Chest pain, unspecified] 04-16-2023 Episodic Osteoarthritis (1 source) Idiopathic osteoarthritis 12-10-2019 Chronic Other and unspecified benign neoplasm (1 source) 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 Other circulatory disease (1 source) Elevated blood-pressure reading without diagnosis of hypertension 01-23-2023 Episodic Other connective tissue disease (1 source) Pain in buttock 01-23-2023 Episodic Other ear and sense organ disorders (1 source) Excessive cerumen in ear canal 05-01-2023 Episodic Other non-traumatic joint disorders (1 source) Hip pain 02-18-2020 Episodic Residual codes; unclassified (1 source) Denture present 06-21-2017 Episodic Past or Other Problems Problem Classification Problem Date Documented Da te Episodic/Chronic Other and unspecified benign neoplasm (2 sources) Other benign neoplasm of skin of right lower limb, including hip; Translations: [Other benign neoplasm of skin of right lower limb, including hip] Onset: 09-12-2022 Episodic Results Test Name Value Interpretation Reference Range Facil ity Encounters Encounter Date Encounter Type Care Provider Facility Start: 07-02-2023 End: 07-03-2023 ambulatory MR JENNY NGUYEN MD Facility:[facility] Start: 07-02-2023 End: 07-02-2023 Patient encounter procedure MR JENNY NGUYEN MD [facility] Start: 04-20-2023 End: 04-21-2023 ambulatory YAZAN NIELSEN MD Facility:[facility] Start: 04-16-2023 End: 04-16-2023 ambulatory Facility:[facility] Start: 04-16-2023 End: 04-16-2023 Patient encounter procedure Philly Cortes APRN.CNP Work Phone: [facility] Procedures Date Procedure Procedure Detail Performing Clinician Start: 11-19-2018 Cataract (disorder) MR JENNY NGUYEN MD Plan of Treatment Date Care Activity Detail Author Start: 02-16-2023 Influenza vaccination Influenza Vacc ine (#1) [facility] Start: 09-21-2022 Mammography Mammogram Screening [facility] Start: 06-18-2022 Advance Directive Discussion Advance Directive Discussion [facility] Start: 06-18-2022 Depression Assessment Depression Ass essment [facility] Start: 2013 Bone Density Screening Bone Density Screening [facility] Start: 2013 Pneumococcal Vaccine : 65+ (1 - PCV) Pneumococcal Vaccine: 65+ (1 - PCV) [facility] Start: 2008 RSV Vaccine (1 - 1-d ose 60+ series) RSV Vaccine (1 - 1-dose 60+ series) [facility] Start: 1998 Shingrix Vaccine (1 of 2) Shingrix V accine (1 of 2) [facility] Start: 1993 Cologuard (FIT-DNA) Cologuard (FIT-D NA) [facility] Start: 1993 Colonoscopy Colonoscopy [facility] Start: 1993 Colorectal Cancer Screening Colorectal Cancer Screening [facility] Start: [address] Colonography [facility] Start: 1993 Diabetes Screening Diabetes Screenin g [facility] Start: 1993 Fecal Occult Blood Fecal Occult Bloo d [facility] Start: 1993 Lipid 1996 panel - S jose or Plasma Lipid Screening [facility] Start: 1993 Sigmoidoscopy Sigmoidoscopy [facility] Start: 1967 Urine microalbumin profile DTa P,Tdap,Td Vaccine (1 - Tdap) [facility] Start: 1966 Hepatitis C Screening Hepatitis C Sc reening [facility] Start: 1948 Covid-19 Vaccine (#1) Covid-19 Vacci ne (#1) [facility] Payers Date Payer Category Payer Medicare MEDICARE MEDICAR E A AND B [id number] 2023-Present [phone] [address] [address] [place] [address] Medicare [id number] 2023 Medicare PENDING 2022 Medicare [id number] 2022 Unknown [id number] 2020 Unknown MMO MMO MEDICARE SUPPLEMENT [id number] 2020-Present [phone] [address] [place] [address] Indemnity [id number] 1993 Unknown [id number] 1948 Unknown [id number] 1948 Unknown [id number] 1948 Unknown [id number] 1948 Unknown [id number] Medicare [id number] Social History Date Type Detail Facility Tobacco smoking stat [facility] Tobacco smoking consumption unknown [facility] Start: 1950 Sex Assigned At Not on file [facility] Gender identity Not on file [facility] in Start: 12-02-2018 Tobacco smoking status Never s moked tobacco (finding) [facility] Sex Assigned At Female [facility] Progress note 04-16-2023 Note Date & Type Note Facility 04-16-2023 Note HNO ID: [id number] Author: Philly Cortes APRN.JEANA Service: ? Author Type: Nurse Practitioner Type: Progress Notes Filed: 04/16/2023 1:58 PM Note Text: [facility] TRI[facility] NOTE: Sujit Pryor is a 72 year old female who presents with pain in the center of her chest since this morning. She notes pain is worse with deep breathing or with exertion. When she gets the pain she feels slightly dizzy/lightheaded. She is referred to ER for further evaluation/treatment to rule out cardiac cause. She is agreeable with this plan of care. Her daughter will drive her to ER. Philly Cortes APRN.JEANA [facility] History of Present illness Narrative 04-16-2023 Philly Cortes APRN.JEANA - 04/16/2023 1:56 PM EDT Note Date & Type Note Facility 04-16-2023 History of Presen t illness Narrative [facility] TRIAGE NOTE: Sujit Pryor is a 72 year old female who presents with pain in the center of her chest since this morning. She notes pain is worse with deep breathing or with exertion. When she gets the pain she feels slightly dizzy/lightheaded. She is referred to ER for further evaluation/treatment to rule out cardiac cause. She is agreeable with this plan of care. Her daughter will drive her to ER. Philly Cortes APRN.MASTER BAKER documented in this encounter [facility] Evaluation + Plan note Note Date & Type Note Facility Evaluation + Plan note Future Appointments Appointment Date:08/07/2023 11:00:00 AM Scheduled Provider:JOHN SALMON DO Location:[facility] Appointment Type:PC OV Controlled Medication [facility] Evaluation note Note Date & Type Note Facility documented in this encounter [facility] course Narrative Note Date & Type Note Facility Hospital course Narrative No data available for this section [facility] Hospital Discharge instructions Note Date & Type Note Facility Hospital Discharge instructions No data available for this section [facility] Progress note Note Date & Type Note Facility Progress note No data available for this section [facility] Summary Purpose Family History No Family History Records FoundNo Family History Records FoundNo Family History Records FoundNo Family History Records Found No data available for this section Advance Directives No Advanced Directives Records FoundNo Advanced Directives Records FoundNo Advanced Directives Records FoundNo Advanced Directives Records Found Additional Source Comments INFORMATION SOURCE (unrecogn ized section and content) DATE CREATED AUTHOR AUTHOR'S ORGANIZ ATION 10/06/2021 [facility] Cris Mukherjee DATE CREATED AUTHOR AUTHOR'S ORGANIZ ATION 04/17/2023 [facility] DATE CREATED AUTHOR AUTHOR'S ORGANIZ ATION 07/03/2023 [facility] ([place]) Source Comments (unrecognize d section and content) In the event this informatio n is protected by the Federal Confidentiality of Alcohol and Drug Abuse Patient Records regulations: The Federal rules restrict any use of the information to criminally investigate or prosecute any alcohol or drug abuse patient.[facility] Patient Care team informatio n (unrecognized section and content) Care Team Personnel Name: JOHN SALMON DO Position: P4 Physician - Primary Care Member Role: Primary Care Physician Address: Address: [address] [place] [id number] Care Team Related Persons Name: HAIRORLIN KINNEYIN Address: [place] [id number] [place] [address] [phone] FOR RECORDS PERTAINING TO PATIENTS WHO ARE OR HAVE BEEN ENROLLED IN A CHEMICAL DEPENDENCY/SUBSTANCEABUSE PROGRAM, SOME INFORMATION MAY BE OMITTED. This clinical summary was aggregated from multiple sources. Caution should be exercised in using it in the provision of clinical care. This summary normalizes information from multiple sources, and as a consequence, information in this document may materially change the coding, format and clinical context of patient data. In addition, data may be omitted in some cases. CLINICAL DECISIONS SHOULD BE BASED ON THE PRIMARY CLINICAL RECORDS. [facility] [email or web address] [facility]. provides no warranty or guarantee of the accuracy or completeness of information in this document.
--- NOTE | 2023-07-04 13:43 | PCM.OP.PRO ---
Procedure Report Date of Procedure: 07/04/23 DC cardioversion 73-year-old lady with a history of atrial fibrillation. The patient has been on therapeutic anticoagulation. The patient was seen by Dr. Bedoya of the critical care division after the patient presented in the fasting state. Informed consent was obtained. Anterior-posterior pads were applied. The patient was administered 40 mg of intravenous propofol. 200 J of synchronized DC Biphasic cardioversion energy were applied with prompt reversal to sinus rhythm. Patient tolerated the procedure well. Conclusion: Successful DC cardioversion from atrial fibrillation to sinus rhythm. Follow-up as per office protocol.
--- NOTE | 2023-07-04 13:46 | PCM.OP.PRO ---
Procedure Report Date of Procedure: 07/04/23 CONSCIOUS SEDATION REPORT DATE OF SERVICE: July 04, 2023 BRIEF HISTORY OF PRESENT ILLNESS: The patient is a 73-year-old female who presented to [facility] for an elective outpatient cardioversion due to underlying atrial fibrillation. The patient has never previously undergone a cardioversion. She denied a history of COPD, asthma or obstructive sleep apnea. The patient is systemically anticoagulated on Eliquis. Her last surface echocardiogram demonstrated an ejection fraction of 55%. She denied any prior anesthetic complications. PHYSICAL EXAMINATION: VITAL SIGNS: Reviewed and were acceptable. GENERAL: The patient is a female, in no apparent distress, speaking in full sentences. HEENT: Normocephalic, atraumatic. Mucous membranes are moist and pink. Good mouth opening noted. Trachea is midline. CHEST: S1, S2 irregularly irregular. No murmurs, rubs or gallops were noted. LUNGS: Clear to auscultation bilaterally without appreciable wheezes, rales or rhonchi. ABDOMEN: Soft, nontender, nondistended. Positive bowel sounds. EXTREMITIES: There is no clubbing, cyanosis or edema. ASA Class: II DESCRIPTION OF PROCEDURE: After confirmation of informed consent, the patient's anesthesia plan was reviewed in detail. Propofol was chosen. Risks and benefits were reviewed and the patient agreed to proceed. At 1337, the patient was given 40 mg of propofol. The patient achieved an appropriate level of sedation and was given a 200 joule synchronized cardioversion by Dr. Marsh at the bedside. This was successful in achieving normal sinus rhythm. The patient was monitored until 1350, at which time she reached her baseline mental status and function. The patient tolerated the procedure well. COMPLICATIONS: None ESTIMATED BLOOD LOSS: None RECOMMENDATIONS: Okay to recover in usual fashion. Procedures Pulmonary 9xxxx: [id number] Con Sedation
== END 2023-07-04 14:35 | disposition home or self-care (01) ==
PROVIDERS: PCP Preventive Medicine Occupational Medicine; Referring Provider Internal Medicine Cardiovascular Disease; Visit Provider Internal Medicine Cardiovascular Disease
DX: I48.91 Unspecified atrial fibrillation (principal); E03.9 Hypothyroidism, unspecified; R53.83 Other fatigue; R53.1 Weakness; I10 Essential (primary) hypertension; R00.2 Palpitations
CPT/HCPCS: 92960; 93005; J7040

== ENCOUNTER → 2023-07-11 | Outpatient (CLI) | payer MEDICARE, OTHER, SELFPAY ==
--- OUTSIDE RECORDS SUMMARY | 2023-07-11 12:00 | XMS RPT_ITS | CCD ---
Author Name Unknown Address [address] [place] [address] Organization [facility] Care Team Providers Care Scheduler Maintenance Name Role Phone JUDI HUBER Unavailable Unavailable JOHN SALMON Unavailable Unavailable JOHN SALMON Unavailable Unavailable Unavailable Primary Care Provider Edyta NGUYEN MD, MR JENNY Ford Attending Unavailable JOHN SALMON DO Primary Care Unavailable JOHN SALMON DO Attending Unavailable JOHN SALMON DO Primary Care Unavailable YAZAN NIELSEN MD Attending Unavailable JOHN SALMON DO Primary Care Unavailable LAURYN DPM, DR ANSATACIA Chisholm Attending Unava ilable JOHN SALMON DO Primary Care Unavailable JOHN SALMON DO Primary Care Physician ([phone] Allergies Allergy Classification Reported Allergen(s) Allergy Type Date of Onset Reaction(s) Facility (2 sources) erythromycin; Translations: [ERYTHROMYCIN] Drug Allergy 7 AOF, Disoriented [facility] Repository Medications Current Medications Medication Drug Class(es) Dates Sig (Normalized) Sig (Original) apixaban 5 mg oral tablet (1 source) Factor Xa Inhibitor Start: 05-08-2023 Eliquis 5 mg oral tablet Dose : 5 mg = 1 tab(s), Oral, BID, # 60 tab(s), 2 Refill(s), Pharmacy: [facility], 166, cm, 05/01/23 11:14:00 EST, [...] Pain, # 90 tab(s), 3 Refill(s), Pharmacy: [id number], Back pain Arthritis, 168, cm, [...] inhaler, # 1 EA, 0 Refill(s), Pharmacy: [id number], Acute bacterial bronchitis, 170.2, cm, 07/07/21 8:03:00 EST, Height, 76.5, kg, 07/07/21 8:03:00 EST, Dosing Weight Start Date: 07/07/21 Status: Ordered thyroid (custodial) 30 mg oral tablet (1 source) Start: 06-21-2017 LIFE ASSURANCE REPRESENTATIVE Thyroid 30 mg oral tablet Dose : [...] anxiety, # 30 tab(s), 1 Refill(s), Pharmacy: [facility]/pharmacy #[id number], Anxiety, 166, cm, 05/01/23 11:14:00 EST, Height, 78.4, kg, 05/01/23 11:14:00 EST, Dosing Weight Start Date: 05/01/23 Stop Date: 06/30/23 Status: Ordered baclofen 10 mg oral tablet (1 source) gamma-Aminobutyric Acid-ergic Agonist Start: 01-23-2023 End: 02-06-2023 baclofen 10 mg oral tablet Dose : 10 mg = 1 tab(s), Oral, TID, PRN Spasm, # 40 tab(s), 0 Refill(s), Pharmacy: [facility]/pharmacy #[id number], Pain in left buttock, 166, cm, [...] Patient encounter procedure MR JENNY NGUYEN MD [facility] Start: 04-20-2023 End: 04-21-2023 ambulatory YAZAN NIELSEN MD Facility:[facility] Start: 04-16-2023 End: 04-16-2023 ambulatory Facility:[facility] Start: 04-16-2023 End: 04-16-2023 Patient encounter procedure Philly Cortes APRN.CNP Work Phone: [facility] Procedures Date Procedure Procedure Detail Performing Clinician Start: 11-19-2018 Cataract (disorder) MR JENNY NGUYEN MD Plan of Treatment Date Care Activity Detail Author Start: 02-16-2023 Influenza vaccination Influenza Vacc ine (#1) [facility] Start: 09-21-2022 Mammography Mammogram Screening [facility] Start: 06-18-2022 Advance Directive Discussion Advance Directive Discussion [facility] Start: 06-18-2022 Depression Assessment Depression Ass essment [facility] Start: 2013 Bone Density Screening Bone Density Screening [facility] Start: 2013 Pneumococcal Vaccine : 65+ (1 - PCV) Pneumococcal Vaccine: 65+ (1 - PCV) [facility] Start: 2008 RSV Vaccine (1 - 1-d ose 60+ series) RSV Vaccine (1 - 1-dose 60+ series) [facility] Start: 1998 Shingrix Vaccine (1 of 2) Shingrix V accine (1 of 2) [facility] Start: 1993 Cologuard (FIT-DNA) Cologuard (FIT-D NA) [facility] Start: 1993 Colonoscopy Colonoscopy [facility] Start: 1993 Colorectal Cancer Screening Colorectal Cancer Screening [facility] Start: [address] Colonography [facility] Start: 1993 Diabetes Screening Diabetes Screenin g [facility] Start: 1993 Fecal Occult Blood Fecal Occult Bloo d [facility] Start: 1993 Lipid 1996 panel - S jose or Plasma Lipid Screening [facility] Start: 1993 Sigmoidoscopy Sigmoidoscopy [facility] Start: 1967 Urine microalbumin profile DTa P,Tdap,Td Vaccine (1 - Tdap) [facility] Start: 1966 Hepatitis C Screening Hepatitis C Sc reening [facility] Start: 1948 Covid-19 Vaccine (#1) Covid-19 Vacci ne (#1) [facility] Payers Date Payer Category Payer Medicare MEDICARE MEDICAR E A AND B [id number] 2023-Present [phone] [address] [address] [place] [address] Medicare [id number] 2023 Medicare PENDING 2022 Medicare [id number] 2022 Unknown [id number] 2020 Unknown MMO MMO MEDICARE SUPPLEMENT [id number] 2020-Present [phone] [address] [place] [address] Indemnity [id number] 1993 Unknown [id number] 1948 Unknown [id number] 1948 Unknown [id number] 1948 Unknown [id number] 1948 Unknown [id number] Medicare [id number] Social History Date Type Detail Facility Tobacco smoking stat [facility] Tobacco smoking consumption unknown [facility] Start: 1950 Sex Assigned At Not on file [facility] Gender identity Not on file [facility] in Start: 12-02-2018 Tobacco smoking status Never s moked tobacco (finding) [facility] Sex Assigned At Female [facility] Progress note 04-16-2023 Note Date & Type Note Facility 04-16-2023 Note HNO ID: [id number] Author: Philly Cortes APRN.JEANA Service: ? Author [...] drive her to ER. Philly Cortes APRN.JEANA [facility] History of Present illness Narrative 04-16-2023 [...] will drive her to ER. Philly Cortes APRN.ASSISTANT PROFESSOR OF MARINE BIOLOGY documented in this encounter [facility] Evaluation + Plan note Note Date & Type Note Facility Evaluation + Plan note Future Appointments Appointment Date:08/07/2023 11:00:00 AM Scheduled Provider:JOHN SALMON DO Location:[facility] Appointment Type:PC OV Controlled Medication [facility] Evaluation note Note Date & Type Note Facility documented in this encounter [facility] course Narrative Note Date & Type Note Facility Hospital course Narrative No data available for this section [facility] Hospital Discharge instructions Note Date & Type Note Facility Hospital Discharge instructions No data available for this section [facility] Progress note Note Date & Type Note Facility Progress note No data available for this section [facility] Summary Purpose Family History No Family [...] DATE CREATED AUTHOR AUTHOR'S ORGANIZ ATION 10/06/2021 [facility] Cris Mukherjee DATE CREATED AUTHOR AUTHOR'S ORGANIZ ATION 04/17/2023 [facility] DATE CREATED AUTHOR AUTHOR'S ORGANIZ ATION 07/03/2023 [facility] [place] [facility] ([place]) Source Comments (unrecognize d section and content) In the event this informatio n is protected by the Federal Confidentiality of Alcohol and Drug Abuse Patient Records regulations: The Federal rules restrict any use of the information to criminally investigate or prosecute any alcohol or drug abuse patient.[facility] Patient Care team informatio n (unrecognized section and content) Care Team Personnel Name: JOHN SALMON DO Position: P4 Physician - Primary Care Member Role: Primary Care Physician Address: Address: [address] [place] [id number] Care Team Related Persons Name: HAIRORLIN KINNEYIN Address: [place] [id number] [place] [address] [id number] FOR RECORDS PERTAINING TO PATIENTS WHO ARE [...] BE BASED ON THE PRIMARY CLINICAL RECORDS. [facility] [employer] [facility]. provides no warranty or guarantee of the accuracy or completeness of information in this document.
[2023-07-11 12:33] LABS: Absolute Neutrophil Count 3.7 X10^3/uL (2.0-7.7); Basophil# 0.03 X10^3/uL; Basophil% 0.5 % (0-1); Eosinophils% 1.6 % (0-5); Hemoglobin 13.4 g/dL (12.0-15.0); Lymphocyte % 28.6 % (19-41); Mean Corp Hgb Conc 31.9 g/dL (32-36); Mean Corpuscular Hgb 28.5 pg (27.0-32.0); Mean Corpuscular Volume 89.2 fL (81-99); Mean Platelet Vol. 9.3 fl (6.2-12.0); Monocyte% 9.5 % (0-10); NRBC Flagged by Analyzer 0 % (0-5); Neutrophil # 3.74 X10^3/uL (2.7-7.7); Neutrophil % 59.3 % (47-70); Platelet Count 260 K/mm3 (150-450); RBC Distribution Width CV 14.8 % (11.6-14.6); RBC Distribution Width SD 48.7 fl (35.1-43.9); Red Blood Count 4.71 M/mm3 (4.2-5.4); White Blood Count 6.3 K/mm3 (4.4-11.0)
[2023-07-11 12:40] LABS: International Normalized Ratio 1.3; Prothrombin Time (Protime)PT. 16.5 SECONDS (11.7-14.9)
[2023-07-11 13:10] LABS: BNP,B-Type NATRIURETIC PEPTIDE 294.4 pg/mL (0-100)
[2023-07-11 13:18] LABS: Anion Gap 3 (5-15); BUN 11 mg/dL (7-18); BUN/Creat Ratio 16.2 RATIO (10-20); Calcium,Total 9.5 mg/dL (8.5-10.1); Chloride 108 mmol/L (98-107); Creatinine, Serum 0.68 mg/dL (0.55-1.02); EST Glomerular Filtration Rate 90 mL/min (>60); Est Glom Filt Rate - Afr Amer 108 mL/min (>60); Glucose 107 mg/dL (74-106); Potassium 4.1 mmol/L (3.5-5.1); Sodium Level 138 mmol/L (136-145)
== END | disposition home or self-care (01) ==
PROVIDERS: Internal Medicine Cardiovascular Disease; PCP Preventive Medicine Occupational Medicine; Referring Provider Nurse Practitioner Gerontology; Visit Provider Nurse Practitioner Gerontology
DX: I48.91 Unspecified atrial fibrillation (principal); R06.02 Shortness of breath
CPT/HCPCS: 36415; 80048; 83880; 85025; 85610